=== PATIENT | female | born 1925 | race Caucasian/White ===

== ENCOUNTER 2017-09-14 12:21 | Inpatient (IN) | payer MEDICARE, OTHER ==
[~2017-09-14] VITALS: Ht 160 cm; Wt 65.8 kg
[2017-09-14] MEDS ORDERED: OMEP20TA5 PO (13:02)
[2017-09-14] MEDS ORDERED: ALLO100T PO (13:02)
[2017-09-14] MEDS ORDERED: FURO40TA5 PO (13:02)
[2017-09-14] MEDS ORDERED: CHOL200078 PO (13:02)
[2017-09-14] MEDS ORDERED: SERT50TA PO (13:02)
[2017-09-14] MEDS ORDERED: POTA10TA15 PO (13:02)
[2017-09-14] MEDS ORDERED: PRAM1TAB7 PO (13:02)
[2017-09-14] MEDS ORDERED: MONT10TA22 PO (13:02)
[2017-09-14] MEDS ORDERED: CARV3.122 PO (13:02)
--- NOTE | 2017-09-14 13:02 | NUR ---
PATIENT IS AWAKE AND ALERT. FAMILY AT BEDSIDE.
[2017-09-14] MEDS ORDERED: IOHEXOL 300MG/ML 100 ML INFUS..BTL ONE (13:23)
[2017-09-14] MEDS ORDERED: IV NORMAL SALINE 250 ML IV ONE (13:23)
[2017-09-14 13:44] LABS: BASOPHILS % (AUTO) 0.3 % (0.0-2.0); EOSINOPHILS # (AUTO) 0.1 K/uL (0.0-0.7); EOSINOPHILS % (AUTO) 0.5 % (0.0-7.0); HEMATOCRIT 33.6 % (31.2-41.9); HEMOGLOBIN 11.2 g/dL (10.9-14.3); LYMPHOCYTES # (AUTO) 1.3 K/uL (20.0-40.0); LYMPHOCYTES % (AUTO) 9.3 % (20.5-51.5); MEAN CORPUSCULAR HEMOGLOBIN 33.1 uug (24.7-32.8); MEAN CORPUSCULAR HGB CONC 33 g/dL (32.3-35.6); MEAN CORPUSCULAR VOLUME 99.2 fL (75.5-95.3); MONOCYTES # (AUTO) 0.7 K/uL (2.0-10.0); NEUTROPHILS # (AUTO) 11.6 K/uL (1.8-8.9); NEUTROPHILS % (AUTO) 84.9 % (38.5-71.5); PLATELET COUNT (AUTO) 333 K/uL (179-408); RED BLOOD CELL COUNT(AUTO) 3.39 MIL/uL (3.63-4.92); WHITE BLOOD COUNT (AUTO) 13.7 K/uL (3.8-11.8)
[2017-09-14 13:52] LABS: CARBON DIOXIDE 23 mmol/L (21-32); CHLORIDE 103 mmol/L (98-107); CREATININE 1.3 mg/dL (0.6-1.3); GLUCOSE 155 mg/dL (74-106); POTASSIUM 4.5 mmol/L (3.5-5.1); UREA NITROGEN, BLOOD 49 mg/dL (7-18)
[2017-09-14 13:59] LABS: ALANINE AMINOTRANSFERASE 27 U/L (14-59); ALKALINE PHOSPHATASE 89 U/L (50-136); ASPARTATE AMINOTRANSFERASE 21 U/L (15-37); BILIRUBIN,DIRECT 0.1 mg/dL (0.0-0.2); BILIRUBIN,TOTAL 0.5 mg/dL (0.2-1.0); TOTAL PROTEIN, SERUM 7.2 g/dL (6.4-8.2)
--- NOTE | 2017-09-14 14:52 | NUR ---
AWAITING TEST RESULTS. PATIENT IS AWAKE AND ALERT WITH NO NEW COMPLAINTS.
--- NOTE | 2017-09-14 16:18 | NUR ---
REPORT GIVEN TO JUDITH PERRY. PT AND FAMILY AWARE OF PENDING ADMISSION. PT EATING A SANDWICH
[2017-09-14 16:37] VITALS: BP 121/53
--- NOTE | 2017-09-14 17:00 | NUR ---
received patient from er via gurney accompanied by er nurse in stable condition. called and paged dr. south, for admission orders. received call back after 30 mins, admission orders noted and carried out will continue to monitor.
[2017-09-14] MEDS ORDERED: ONDANSETRON 4 MG/2 ML VIAL IV PRN (18:45)
[2017-09-14] MEDS ORDERED: ZOLPIDEM 5 MG TABLET PO PRN (18:45)
[2017-09-14] MEDS ORDERED: ACETAMINOPHEN 325 MG TABLET PO PRN (18:45)
--- NOTE | 2017-09-14 19:00 | NUR ---
Received patient awake. Not in distress. Farsi speaking, Denies pain at this time. Continue to monitor. Made comfortable.
[2017-09-14 20:00] VITALS: BP_SYST 101; BP_SYST 180; BP_DIAS 52; BP_DIAS 93
[2017-09-14] MEDS: PRAMIPEXOLE 1 MG TABLET PO SCH (20:24)
[2017-09-14] MEDS: CARVEDILOL 3.125 MG TABLET PO SCH (20:24)
[2017-09-14] MEDS: ALLOPURINOL 100 MG TABLET PO SCH (20:25)
[2017-09-15] VITALS: BP 112/51
[2017-09-15] MEDS ORDERED: ACETAMINOPHEN 325 MG TABLET PO SCH
[2017-09-15 04:00] VITALS: BP 115/54
[2017-09-15] MEDS: PANTOPRAZOLE SODIUM 40 MG TABLET.DR PO SCH (05:00)
--- NOTE | 2017-09-15 06:06 | NUR ---
Slept good. No complaint presented throughout the night. All needs attended and met. No significant event reported. Continue current plan of care.
[2017-09-15 07:05] LABS: THYROID STIMULATING HORMONE 1.226 mIU/mL (0.358-3.740)
[2017-09-15 07:13] LABS: LYMPHOCYTES # (AUTO) 1.7 K/uL (20.0-40.0); MONOCYTES # (AUTO) 0.7 K/uL (2.0-10.0); MONOCYTES % (AUTO) 7.3 % (0.0-11.0)
[2017-09-15 07:19] LABS: BASOPHILS % (AUTO) 0.3 % (0.0-2.0); EOSINOPHILS % (AUTO) 0.5 % (0.0-7.0); HEMATOCRIT 33.5 % (31.2-41.9); HEMOGLOBIN 10.9 g/dL (10.9-14.3); LYMPHOCYTES % (AUTO) 18.1 % (20.5-51.5); MEAN CORPUSCULAR HEMOGLOBIN 32.5 uug (24.7-32.8); MEAN CORPUSCULAR HGB CONC 33 g/dL (32.3-35.6); MEAN CORPUSCULAR VOLUME 99.5 fL (75.5-95.3); NEUTROPHILS # (AUTO) 6.8 K/uL (1.8-8.9); NEUTROPHILS % (AUTO) 73.8 % (38.5-71.5); PLATELET COUNT (AUTO) 320 K/uL (179-408); RED BLOOD CELL COUNT(AUTO) 3.36 MIL/uL (3.63-4.92)
[2017-09-15 07:21] LABS: WHITE BLOOD COUNT (AUTO) 9.2 K/uL (3.8-11.8)
[2017-09-15 07:53] LABS: ALANINE AMINOTRANSFERASE 25 U/L (14-59); ALKALINE PHOSPHATASE 89 U/L (50-136); ASPARTATE AMINOTRANSFERASE 20 U/L (15-37); BILIRUBIN,TOTAL 0.5 mg/dL (0.2-1.0); CARBON DIOXIDE 26 mmol/L (21-32); CHLORIDE 107 mmol/L (98-107); CREATININE 1.2 mg/dL (0.6-1.3); GLUCOSE 100 mg/dL (74-106); POTASSIUM 4.1 mmol/L (3.5-5.1); UREA NITROGEN, BLOOD 53 mg/dL (7-18)
--- NOTE | 2017-09-15 07:59 | NUR ---
used translating phone to communicate with pt. introduced self to pt at beginning of shift. pt having left hip pain and wincing when trying to move or turn onto side. pt crying from pain. pt says she needs to use bedpan cannot use bed ho d/t pain. rn applied lidocaine patch to lower back and pt communicates immediate relief to 10. alvin also give tylenol to reach pain goals. call light within reach will cont to monitor. ashley pacheco
[2017-09-15 08:00] VITALS: BP 117/53
[2017-09-15] MEDS: LIDOCAINE 5% PATCH TD SCH (08:39)
[2017-09-15] MEDS: CHOLECALCIFEROL 1,000 UNIT TABLET PO SCH (08:43)
[2017-09-15] MEDS: MONTELUKAST SODIUM 10 MG TABLET PO SCH (08:44)
[2017-09-15] MEDS: POTASSIUM CHLORIDE 10 MEQ CAPSULE.SA PO SCH (08:45)
[2017-09-15] MEDS: SERTRALINE HCL 50 MG TABLET PO SCH (08:46)
[2017-09-15] MEDS: FUROSEMIDE 40 MG TABLET PO SCH (08:46)
[2017-09-15] MEDS ORDERED: Medication Not On Formulary EA (Omeprazole 1 TAB) PO SCH (09:00)
[2017-09-15] MEDS: CARVEDILOL 3.125 MG TABLET PO SCH ×2 (09:00→17:00)
[2017-09-15] MEDS ORDERED: Medication Not On Formulary EA (Potassium Chloride 1 TAB) PO SCH (09:00)
[2017-09-15] MEDS: PRAMIPEXOLE 1 MG TABLET PO SCH ×2 (09:09→17:52)
[2017-09-15 11:01] VITALS: BP 108/58
[2017-09-15 15:05] VITALS: BP 110/46
[2017-09-15] MEDS: TRAMADOL HCL 50 MG TABLET PO PRN (17:57)
[2017-09-15] MEDS: MIRALAX 17 GM POWD.PACK PO SCH (18:15)
--- NOTE | 2017-09-15 18:40 | NUR ---
PT REFUSES MIRALAX. STATES THAT IT MAKES HER VOMIT. WILL CONT TO MONITOR AND GIVE SENNOKOT AT 2100.
--- NOTE | 2017-09-15 19:00 | NUR ---
Received patient in bed, sleeping but easily arousable when name called. Denies any pain/discomforts at this time. Continue to monitor.
[2017-09-15 20:00] VITALS: BP 113/52
[2017-09-15] MEDS: SENNOSIDES 1 TABLET PO SCH (20:24)
[2017-09-15] MEDS: ALLOPURINOL 100 MG TABLET PO SCH (20:24)
--- NOTE | 2017-09-15 20:25 | NUR ---
Spoke with Nila Martinez, patient's granddaughter regarding scheduled EGD in AM that needs a signed consent. She said that she will come in tomorrow prior to the procedure.Charge nurse aware. Addendum: 09/16/17 at 0546 by OMAIRA WALLS RN Wrong patient.
--- NOTE | 2017-09-15 20:35 | NUR ---
Nila Martinez called asking about the risk and benefit of the said procedure and needs to talk to the PMD for information. Instructed patient's daughter when she comes to the hospital to ask the charge nurse her desire to talk to the PMD. Addendum: 09/16/17 at 0546 by OMAIRA WALLS RN Wrong patient
[2017-09-16 04:00] VITALS: BP 119/56
[2017-09-16] MEDS: PANTOPRAZOLE SODIUM 40 MG TABLET.DR PO SCH (06:18)
[2017-09-16] MEDS ORDERED: DORZ10DR8 EACHEYE (06:51)
[2017-09-16] MEDS ORDERED: DEXT15DR6 EACHEYE (06:52)
[2017-09-16] MEDS ORDERED: LATA2.5D7 EACHEYE (06:52)
[2017-09-16] MEDS ORDERED: BRIM10DR6 EACHEYE (06:52)
--- NOTE | 2017-09-16 07:46 | NUR ---
Awake, alert, oriented x 4, Farsi speaking. Uses call light. Repositioned comfortably after incontinence care
[2017-09-16] MEDS: CARVEDILOL 3.125 MG TABLET PO SCH ×2 (08:31→16:29)
[2017-09-16] MEDS: COLCHICINE 0.6 MG TABLET PO SCH (08:31)
[2017-09-16] MEDS: FUROSEMIDE 40 MG TABLET PO SCH (08:31)
[2017-09-16] MEDS: SERTRALINE HCL 50 MG TABLET PO SCH (08:32)
[2017-09-16] MEDS: POTASSIUM CHLORIDE 10 MEQ CAPSULE.SA PO SCH (08:32)
[2017-09-16] MEDS: MIRALAX 17 GM POWD.PACK PO SCH (08:32)
[2017-09-16] MEDS: CHOLECALCIFEROL 1,000 UNIT TABLET PO SCH (08:32)
[2017-09-16] MEDS: MONTELUKAST SODIUM 10 MG TABLET PO SCH (08:32)
[2017-09-16] MEDS: PRAMIPEXOLE 1 MG TABLET PO SCH ×2 (08:32→16:29)
[2017-09-16] MEDS: LIDOCAINE 5% PATCH TD SCH (08:33)
--- NOTE | 2017-09-16 09:30 | NUR ---
Complained of burning pain on soles of both feet. Massage with lotion and elevated over pillows with relief
[2017-09-16] MEDS: TRAMADOL HCL 50 MG TABLET PO PRN ×2 (10:31→17:09)
[2017-09-16 10:51] VITALS: BP 128/50
--- NOTE | 2017-09-16 11:30 | NUR ---
Assisted out of bed by PT max assist x 2, ambulated outside of room, then back to bed.
--- NOTE | 2017-09-16 14:44 | NUR ---
Family at bedside, supportive
[2017-09-16 15:08] VITALS: BP 121/54
--- NOTE | 2017-09-16 18:40 | NUR ---
CT Lumbar spine done. Dr. Rose at nurses station, speaking with Radiologist. Patient repositioned in bed comfortably.
[2017-09-16 19:00] VITALS: BP 156/57
--- NOTE | 2017-09-16 19:45 | NUR ---
PATIENT SLEEPING COMFORTABLY, EASILY AROUSING TO VERBAL COMMANDS. NO FACIAL DISTRESS NOTED SHOWING ANY PAIN OR ANY DISCOMFORT. WILL CONTINUE TO MONITOR.
[2017-09-16] MEDS: ALLOPURINOL 100 MG TABLET PO SCH (20:13)
[2017-09-16] MEDS: DEXAMETHASONE SOD PHOSPHATE 4 MG INJ IV SCH (20:13)
[2017-09-16] MEDS: SENNOSIDES 1 TABLET PO SCH (20:13)
[2017-09-16] MEDS: OXYCODONE/APAP 5-325 MG TABLET PO PRN (22:27)
--- NOTE | 2017-09-17 00:45 | NUR ---
SPOKE TO THE PATIENT VIA LIME PLANT OPERATOR. PATIENT C/O LOW BACK PAIN . PAIN MED ADMINISTERED ORDERED. WILL CONTINUE TO MONITOR.
[2017-09-17 04:41] VITALS: BP 139/55
[2017-09-17] MEDS: PANTOPRAZOLE SODIUM 40 MG TABLET.DR PO SCH (06:10)
--- NOTE | 2017-09-17 06:20 | NUR ---
PATIENT SLEPT ABOUT SEVEN HRS. PAIN MEDICATION ADMINISTERED ON C/O BACK PAIN. PATIENT USED BED NAM FOR URINATION. KEPT CLEAN AND DRY. SAFETY MEASURES OBSERVED.
[2017-09-17] MEDS: COLCHICINE 0.6 MG TABLET PO SCH (08:08)
[2017-09-17] MEDS: PREGABALIN 25 MG CAPSULE PO SCH ×2 (08:08→17:56)
[2017-09-17] MEDS: PRAMIPEXOLE 1 MG TABLET PO SCH ×2 (08:08→17:55)
[2017-09-17] MEDS: MONTELUKAST SODIUM 10 MG TABLET PO SCH (08:08)
[2017-09-17] MEDS: CHOLECALCIFEROL 1,000 UNIT TABLET PO SCH (08:08)
[2017-09-17] MEDS: DEXAMETHASONE SOD PHOSPHATE 4 MG INJ IV SCH ×2 (08:09→20:34)
[2017-09-17] MEDS: POTASSIUM CHLORIDE 10 MEQ CAPSULE.SA PO SCH (08:09)
[2017-09-17] MEDS: SERTRALINE HCL 50 MG TABLET PO SCH (08:09)
[2017-09-17] MEDS: MIRALAX 17 GM POWD.PACK PO SCH (08:10)
[2017-09-17] MEDS: LIDOCAINE 5% PATCH TD SCH (08:10)
--- NOTE | 2017-09-17 08:26 | NUR ---
0817: Used translation phone to explain care to patient. Water Purifier Operator name: Janet ID: [id number]
[2017-09-17] MEDS: CARVEDILOL 3.125 MG TABLET PO SCH ×2 (09:22→17:56)
[2017-09-17] MEDS: FUROSEMIDE 40 MG TABLET PO SCH (09:23)
[2017-09-17 11:00] VITALS: BP 130/57
[2017-09-17] MEDS: OXYCODONE/APAP 5-325 MG TABLET PO PRN (12:34)
[2017-09-17] MEDS: LACTULOSE 20 G/30 ML LIQUID UDC PO SCH ×2 (14:01→20:35)
[2017-09-17 15:02] VITALS: BP 107/45
[2017-09-17 19:00] VITALS: BP 136/54
--- NOTE | 2017-09-17 19:44 | NUR ---
PATIENT LYING ON BED, INTERMITTENTLY SLEEPING. NO FACIAL GRIMACES SHOWING ANY PAIN OR DISCOMFORT NOTED. WILL CONTINUE TO MONITOR.
[2017-09-17] MEDS: ALLOPURINOL 100 MG TABLET PO SCH (20:34)
[2017-09-17] MEDS: SENNOSIDES 1 TABLET PO SCH (20:34)
[2017-09-17] MEDS: DOCUSATE SODIUM 100 MG CAPSULE PO SCH (20:35)
--- NOTE | 2017-09-18 | NUR ---
RECEIVED PT AWAKE IN BED, SHE'S MAINLY FARSI SPEAKING. FAMILY AT BED SIDE, SHE DENIES PAIN OR ANY DISCOMFORT. NO S/S OF RESP DISTRESS NOTED. COMFORT MEASURES IN PLACE, SAFETY MEASURES INITIATED BED IN LOW POSITION AND LOCKED. NO CONCERNS AT PRESENT WILL CONTINUE TO MONITOR PT Addendum: 09/19/17 at 0514 by JOSY HARVEY RN CORRECT TIME AND DATE IS 09/18/17 AT 2000
[2017-09-18 04:00] VITALS: BP 127/53
[2017-09-18] MEDS: PANTOPRAZOLE SODIUM 40 MG TABLET.DR PO SCH (06:24)
--- NOTE | 2017-09-18 07:02 | NUR ---
PATIENT SLEEPING INTERMITTENTLY STOOL SOFTENERS AND LAXATIVES GIVEN ORDERED. NO BM DURING THE SHIFT, NO C/O OF PAIN DURING THE SHIFT. KEPT CLEAN AND DRY
[2017-09-18 07:10] LABS: BASOPHILS % (AUTO) 0.3 % (0.0-2.0); EOSINOPHILS % (AUTO) 0.1 % (0.0-7.0); HEMATOCRIT 33.9 % (31.2-41.9); HEMOGLOBIN 11.1 g/dL (10.9-14.3); LYMPHOCYTES # (AUTO) 1.7 K/uL (20.0-40.0); LYMPHOCYTES % (AUTO) 15.9 % (20.5-51.5); MEAN CORPUSCULAR HEMOGLOBIN 32.7 uug (24.7-32.8); MEAN CORPUSCULAR HGB CONC 33 g/dL (32.3-35.6); MEAN CORPUSCULAR VOLUME 100.1 fL (75.5-95.3); MONOCYTES # (AUTO) 0.5 K/uL (2.0-10.0); MONOCYTES % (AUTO) 4.9 % (0.0-11.0); NEUTROPHILS # (AUTO) 8.5 K/uL (1.8-8.9); NEUTROPHILS % (AUTO) 78.8 % (38.5-71.5); PLATELET COUNT (AUTO) 300 K/uL (179-408); RED BLOOD CELL COUNT(AUTO) 3.39 MIL/uL (3.63-4.92); WHITE BLOOD COUNT (AUTO) 10.8 K/uL (3.8-11.8)
[2017-09-18 07:16] LABS: CARBON DIOXIDE 22 mmol/L (21-32); CHLORIDE 107 mmol/L (98-107); CREATININE 1.3 mg/dL (0.6-1.3); GLUCOSE 125 mg/dL (74-106); MAGNESIUM 2.4 mg/dL (1.8-2.4); PHOSPHOROUS 3.8 mg/dL (2.5-4.9); POTASSIUM 4.7 mmol/L (3.5-5.1); UREA NITROGEN, BLOOD 56 mg/dL (7-18)
--- NOTE | 2017-09-18 08:00 | NUR ---
SLEEPING COMFORTABLY. NO DISTRESS NOTED.
[2017-09-18] MEDS: LACTULOSE 20 G/30 ML LIQUID UDC PO SCH ×2 (08:53→20:46)
[2017-09-18] MEDS: POTASSIUM CHLORIDE 10 MEQ CAPSULE.SA PO SCH (08:54)
[2017-09-18] MEDS: CHOLECALCIFEROL 1,000 UNIT TABLET PO SCH (08:54)
[2017-09-18] MEDS: MONTELUKAST SODIUM 10 MG TABLET PO SCH (08:54)
[2017-09-18] MEDS: DEXAMETHASONE SOD PHOSPHATE 4 MG INJ IV SCH (08:54)
[2017-09-18] MEDS: FUROSEMIDE 40 MG TABLET PO SCH (08:54)
[2017-09-18] MEDS: LIDOCAINE 5% PATCH TD SCH (08:55)
[2017-09-18] MEDS: MIRALAX 17 GM POWD.PACK PO SCH (08:55)
[2017-09-18] MEDS: DOCUSATE SODIUM 100 MG CAPSULE PO SCH ×2 (08:55→20:46)
[2017-09-18] MEDS: COLCHICINE 0.6 MG TABLET PO SCH (08:55)
[2017-09-18] MEDS: PRAMIPEXOLE 1 MG TABLET PO SCH ×2 (08:55→16:56)
[2017-09-18] MEDS: SERTRALINE HCL 50 MG TABLET PO SCH (09:03)
[2017-09-18] MEDS: PREGABALIN 25 MG CAPSULE PO SCH ×2 (09:03→16:56)
[2017-09-18] MEDS: CARVEDILOL 3.125 MG TABLET PO SCH ×2 (09:04→16:55)
[2017-09-18 09:17] LABS: BAND % (MANUAL) 1 % (0-10); LYMPHOCYTES % (MANUAL) 15 % (20-40); METAMYELOCYTES % 1 % (0-1); MONOCYTES % (MANUAL) 1 % (2-10); MYELOCYTES % 1 % (0-0); NEUTROPHILS % (MANUAL) 81 % (42-75)
--- NOTE | 2017-09-18 09:45 | NUR ---
OOB TO BRP, TOLERATED WELL. X1 LOOSE STOOL, ENTERIC PRECAUTION PER PROTOCOL. RETURNED TO BED REQUESTED. Addendum: 09/18/17 at 0947 by LILIANA MERCER RN ERROR , WRONG ENTRY
--- NOTE | 2017-09-18 09:48 | NUR ---
RESTING WELL AFTER BREAKFAST, TOLERATED WELL. TAKING FLUIDS LIBERALLY.
[2017-09-18 11:24] VITALS: BP 122/45
--- NOTE | 2017-09-18 12:30 | NUR ---
FAMILY AT BEDSIDE, SUPPORTIVE 0F PATIENT CARE. PATIENT GLAD OF START OF BM.
--- NOTE | 2017-09-18 13:00 | NUR ---
SMALL AMOUNT OF BM, GLAD OF MOVEMENT.
[2017-09-18 15:24] VITALS: BP 125/57
--- NOTE | 2017-09-18 15:30 | NUR ---
LARGE BM , VERY GLAD OF BM MOVEMENTS
[2017-09-18 19:53] VITALS: BP 120/50
[2017-09-18] MEDS: ALLOPURINOL 100 MG TABLET PO SCH (20:46)
[2017-09-18] MEDS: SENNOSIDES 1 TABLET PO SCH (20:46)
[2017-09-19 04:26] VITALS: BP 126/45
--- NOTE | 2017-09-19 05:14 | NUR ---
PATIENT SLEPT THROUGHOUT THE NIGHT WITH NO S/S OF PAIN OR DISTRESS NOTED, SHE HAD ONE BM ON THIS SHIFT. NO FURTHER CONCERNS AT PRESENT, ALL SAFETY AND COMFORT MEASURES IN PLACE, CALL LIGHT WITHIN PATIENT'S REACH.
[2017-09-19] MEDS: PANTOPRAZOLE SODIUM 40 MG TABLET.DR PO SCH (06:05)
[2017-09-19] MEDS: PRAMIPEXOLE 1 MG TABLET PO SCH ×2 (08:24→16:12)
[2017-09-19] MEDS: FUROSEMIDE 40 MG TABLET PO SCH (08:24)
[2017-09-19] MEDS: POTASSIUM CHLORIDE 10 MEQ CAPSULE.SA PO SCH (08:25)
[2017-09-19] MEDS: CHOLECALCIFEROL 1,000 UNIT TABLET PO SCH (08:25)
[2017-09-19] MEDS: DOCUSATE SODIUM 100 MG CAPSULE PO SCH (08:25)
[2017-09-19] MEDS: COLCHICINE 0.6 MG TABLET PO SCH (08:25)
[2017-09-19] MEDS: SERTRALINE HCL 50 MG TABLET PO SCH (08:25)
[2017-09-19] MEDS: PREGABALIN 25 MG CAPSULE PO SCH ×2 (08:25→16:13)
[2017-09-19] MEDS: LIDOCAINE 5% PATCH TD SCH (08:26)
[2017-09-19] MEDS: LACTULOSE 20 G/30 ML LIQUID UDC PO SCH (08:26)
[2017-09-19] MEDS: MIRALAX 17 GM POWD.PACK PO SCH (08:26)
[2017-09-19] MEDS: MONTELUKAST SODIUM 10 MG TABLET PO SCH (08:28)
[2017-09-19] MEDS: CARVEDILOL 3.125 MG TABLET PO SCH ×2 (08:28→16:13)
[2017-09-19] MEDS: TRAMADOL HCL 50 MG TABLET PO PRN (10:20)
[2017-09-19 11:07] VITALS: BP 118/39
[2017-09-19] MEDS ORDERED: LIDO30AD10 TD (12:54)
[2017-09-19] MEDS ORDERED: TRAM50TA2 PO (12:54)
[2017-09-19] MEDS ORDERED: PREG25CA PO (12:54)
[2017-09-19] MEDS ORDERED: DOCU100C36 PO (12:54)
[2017-09-19] MEDS ORDERED: SENN-167 PO (12:54)
[2017-09-19] MEDS ORDERED: PANT40TA2 PO (12:54)
--- NOTE | 2017-09-19 14:11 | NUR ---
ORDER TO DISCHARGE PATIENT TO [facility] RECEIVED AND NOTED PATIENTS DAUGHTER CECE AWARE.
[2017-09-19] MEDS: OXYCODONE/APAP 5-325 MG TABLET PO PRN (14:53)
--- NOTE | 2017-09-19 15:10 | NUR ---
CALLED [facility] AND REPORT GIVEN TO [facility] FOR CONTINUING CARE.
[2017-09-19 15:33] VITALS: BP 120/60
[2017-09-19 16:13] VITALS: BP 119/61
--- NOTE | 2017-09-19 16:51 | NUR ---
PATIENT DISCHARGED PICKED UP BY [facility] IN SATISFACTORY CONDITION WITH ALL OF HER PERSONAL BELONGINGS NOTED THAT PATIENT HAS A BAG OF HER HOME MEDICATIONS IN THE CLOSET WAS GIVEN TO THE AMBULANCE TECHS AND INSTRUCTED THEM TO HAND IT OVER TO THE NURSES AT THE ACUTE REHAB AND THEY EXPRESSED UNDERSTANDING.
== END 2017-09-19 16:48 | DRG 542 ==
LOC: ER 12:21 → TELE 16:12 → MED 09-15 12:29
PROVIDERS: ADMIT Internal Medicine; ATTEND Internal Medicine
DX: M84.48XA Pathological fracture, other site, initial encounter for fracture (principal); R53.2 Functional quadriplegia; E11.22 Type 2 diabetes mellitus with diabetic chronic kidney disease; E87.1 Hypo-osmolality and hyponatremia; J45.909 Unspecified asthma, uncomplicated; M51.16 Intervertebral disc disorders with radiculopathy, lumbar region; M43.17 Spondylolisthesis, lumbosacral region; M46.86 Other specified inflammatory spondylopathies, lumbar region; Z85.3 Personal history of malignant neoplasm of breast; E78.5 Hyperlipidemia, unspecified; M10.9 Gout, unspecified; Z79.899 Other long term (current) drug therapy; G25.81 Restless legs syndrome; H40.9 Unspecified glaucoma; N18.9 Chronic kidney disease, unspecified; K21.9 Gastro-esophageal reflux disease without esophagitis; K57.30 Diverticulosis of large intestine without perforation or abscess without bleeding; I70.0 Atherosclerosis of aorta; D72.829 Elevated white blood cell count, unspecified; T38.0X5A Adverse effect of glucocorticoids and synthetic analogues, initial encounter
CPT/HCPCS: 36415; 70030-TC; 71045; 72131; 83735; 84100; 84443; 85025; 85730; 93005; 97116; 97530; A4663; J1100; J7050; Q9967